=== PATIENT | male | born 1960 | race African-American/Black ===

== ENCOUNTER 2021-10-30 20:57 | Emergency (ER) | payer SELFPAY ==
[~2021-10-30] VITALS: Ht 180.3 cm; Wt 57.6 kg
[2021-10-30] MEDS ORDERED: LIDOCAINE HCL/EPINEPHRINE 1%-EPI 1:100,000 20 ML VIAL INFIL ONE (22:30)
[2021-10-30] MEDS ORDERED: BACITRACIN ZINC OINT UDPKT TOP ONE (22:30)
[2021-10-30] MEDS ORDERED: LIDOCAINE HCL/EPINEPHRINE 1%-EPI 1:100,000 10 ML VIAL IJ NR (22:40)
[2021-10-30 23:28] VITALS: BP 135/79
== END 2021-10-30 23:43 | disposition home or self-care (01) ==
LOC: ER 20:57
DX: S01.81XA Laceration without foreign body of other part of head, initial encounter (principal); W18.39XA Other fall on same level, initial encounter; Y93.89 Activity, other specified; Y92.89 Other specified places as the place of occurrence of the external cause; Y99.8 Other external cause status
CPT/HCPCS: 12014; 70450; 73560; 99284; J3490; Z7610

== ENCOUNTER 2021-11-10 14:24 | Emergency (ER) | payer OTHER ==
[~2021-11-10] VITALS: Ht 180.3 cm; Wt 73.0 kg
[2021-11-10 14:42] VITALS: BP 106/68
== END 2021-11-10 16:43 | disposition home or self-care (01) ==
LOC: ER 15:14
DX: S01.81XD Laceration without foreign body of other part of head, subsequent encounter (principal); X58.XXXD Exposure to other specified factors, subsequent encounter
CPT/HCPCS: 99281

== ENCOUNTER 2022-12-29 21:13 | Emergency (ER) | payer OTHER ==
[~2022-12-29] VITALS: Ht 167.6 cm; Wt 68.0 kg
[2022-12-29 21:19] VITALS: O2SAT 97
[2022-12-29 23:15] VITALS: BP 129/82; PULSE 79; RESP 16; TEMP 98.3
== END 2022-12-29 23:21 | disposition home or self-care (01) ==
LOC: ER 21:13
DX: F10.129 Alcohol abuse with intoxication, unspecified (principal); Y90.0 Blood alcohol level of less than 20 mg/100 ml
CPT/HCPCS: 99283